=== PATIENT | female | born 1995 | race Caucasian/White ===

== ENCOUNTER → 2017-02-27 | Outpatient (CLI) | payer OTHER | LOC: MOB LAB 15:33 | PROVIDERS: ATTEND Obstetrics & Gynecology | DX: Z36 Encounter for antenatal screening of mother (principal); Z3A.36 36 weeks gestation of pregnancy | CPT/HCPCS: 87150 ==

== ENCOUNTER 2017-03-19 15:07 | Inpatient (IN) ==
[2017-03-19] MEDS ORDERED: Naloxone Inj 0.01 MG in Normal Saline Flush 1 ML IVP PRN (17:17)
[2017-03-19] MEDS ORDERED: Lidocaine 1% 10 MG/ML - 20 ML VIAL SUBCUT PRN (17:17)
[2017-03-19] MEDS ORDERED: Famotidine Inj 20 MG in Normal Saline Flush 10 ML IVP PRN ×4 (17:17)
[2017-03-19] MEDS ORDERED: NALOXONE 0.4 MG/1 ML VIAL IVP PRN (17:17)
[2017-03-19] MEDS ORDERED: Carboprost Inj 250 MCG/ML AMP IM PRN (17:17)
[2017-03-19] MEDS ORDERED: diphenhydrAMINE 50 MG/1 ML VIAL IVP PRN (17:17)
[2017-03-19] MEDS ORDERED: OXYTOCIN 10 UNIT/1 ML IM PRN (17:17)
[2017-03-19] MEDS ORDERED: Metoclopramide Inj 10 MG/2 ML VIAL IV PRN (17:17)
[2017-03-19] MEDS ORDERED: Nalbuphine Inj 20 MG/ML Ampule IVP PRN (17:17)
[2017-03-19] MEDS ORDERED: CefOXitin Inj 2 GM in Sodium Chloride 0.9% 100 ML IV PRN (17:17)
[2017-03-19] MEDS ORDERED: BUTORPHANOL TARTRATE 2 MG/1 ML VIAL IVP PRN (17:17)
[2017-03-19] MEDS ORDERED: fentaNYL Inj 100 MCG/2 ML VIAL IV PRN (17:17)
[2017-03-19] MEDS ORDERED: CALCIUM CARBONATE 500 MG (TUMS) CHEWABLE TABLET PO PRN (17:17)
[2017-03-19] MEDS ORDERED: NORMAL SALINE 10 ML SYRINGE FLUSH IVP PRN (17:17)
[2017-03-19] MEDS ORDERED: MISOPROSTOL 200 MCG TABLET RECTAL PRN (17:17)
[2017-03-19] MEDS ORDERED: CITRIC ACID/SODIUM CITRATE 30 ML CUP PO PRN (17:17)
[2017-03-19] MEDS ORDERED: ONDANSETRON 4 MG/2 ML VIAL IVP PRN (17:17)
[2017-03-19] MEDS ORDERED: TERBUTALINE SULFATE 1 MG/1 ML SDV SUBCUT PRN (17:17)
[2017-03-19] MEDS ORDERED: LIDOCAINE W/ SODIUM BICARB 0.5 ML SYR SUBD PRN (17:17)
[2017-03-19] MEDS ORDERED: METHYLERGONOVINE MALEATE 0.2 MG/1 ML VIAL IM PRN (17:17)
[2017-03-19] MEDS ORDERED: ZOLPIDEM 10 MG TABLET PO PRN (17:21)
[2017-03-19] MEDS ORDERED: Oxytocin 20 Units + LR 1,000 ML IV SCH (17:30)
[2017-03-19 17:40] LABS: BASOPHILS # (AUTO) 0.05 10*3/UL; BASOPHILS % (AUTO) 0.5 % (0-1); EOSINOPHILS # (AUTO) 0.09 10*3/UL; EOSINOPHILS % (AUTO) 0.9 % (0-8); Hematocrit [HCT] 37.8 % (37.0-47.0); Hemoglobin [HGB] 13.1 g/dL (12.0-16.0); MEAN CORPUSCULAR HGB CONC 34.7 g/dL (33-37); MEAN CORPUSCULAR VOLUME 89.4 FL (81-99); MONOCYTES # (AUTO) 0.72 10*3/UL (0.3-0.8); MONOCYTES % (AUTO) 7.2 % (5-15); NEUTROPHILS # (AUTO) 7.45 10*3/UL; NEUTROPHILS % (AUTO) 74.1 % (50-80); PLATELET MORPHOLOGY COMMENT NORMAL MORPHOLOGY (NORM); RBC MORPHOLOGY COMMENT NORMAL MORPHOLOGY (NORM); RED BLOOD COUNT 4.23 10^6/uL (4.20-5.40); WBC MORPHOLOGY COMMENT NORMAL MORPHOLOGY (NORM)
[2017-03-19] MEDS ORDERED: diphenhydrAMINE HCL 12.5 MG/5 ML UD CUP PO PRN (18:06)
[2017-03-19 18:13] LABS: HIV ANTIBODY NEGATIVE (N); HIV-1 P24 ANTIGEN NEGATIVE (N)
[2017-03-19] MEDS: Misoprostol Tab 100 MCG TAB VAGINAL SCH ×2 (18:30→21:12)
[2017-03-19] MEDS: Lactated Ringers-OB Dept 1,000 ML PRIMARY IV SCH (21:11)
[2017-03-19] MEDS ORDERED: HYDROXYZINE PAMOATE 25 MG CAPSULE PO ONE (22:16)
[2017-03-20] MEDS: Misoprostol Tab 100 MCG TAB VAGINAL SCH ×3 (00:20→09:11)
[2017-03-20] MEDS: Lactated Ringers-OB Dept 1,000 ML PRIMARY IV SCH ×7 (05:17→17:16)
[2017-03-20] MEDS ORDERED: Oxytocin 20 Units + LR 1,000 ML IV SCH ×2 (06:45→19:15)
--- NOTE | 2017-03-20 08:44 | OB.PROGRES ---
Interval History: G1 at 39 2/7 weeks EGA in for elective induction. Pt. is currently on pitocin after two doses of cyotec overnight. She is olive irregularly and not painfully at this point. Cervix has not changed since her examination in the office yesterday. FHRT is category 1. Continue pitocin. Objective - Labs CBC and BMP: 03/19/17 17:21 Labs - Last 24 Hours: Laboratory Results 03/19/17 03/19/17 Range/Units 17:21 18:01 WBC 10.05 (4.8-10.8) 10^3/uL RBC 4.23 (4.20-5.40) 10^6/uL Hgb 13.1 (12.0-16.0) g/dL Hct 37.8 (37.0-47.0) % MCV 89.4 (81-99) FL MCH 31.0 (27-31) PG MCHC 34.7 (33-37) g/dL RDW Std Deviation 41.7 (39-50) fL RDW Coeff of Pamela 13.1 (11.5-14.5) % Plt Count 266 (140-350) 10*3/uL MPV 10.0 (7.4-12.2) FL Immature Gran % (Auto) 1.4 (0-5) % Neut % (Auto) 74.1 (50-80) % Lymph % (Auto) 15.9 (10-50) % [place] % (Auto) 7.2 (5-15) % Eos % (Auto) 0.9 (0-8) % Baso % (Auto) 0.5 (0-1) % Immature Gran # (Auto) 0.14 10*3/UL Neut # (Auto) 7.45 10*3/UL Lymph # (Auto) 1.60 10*3/uL [place] # (Auto) 0.72 (0.3-0.8) 10*3/UL Eos # (Auto) 0.09 10*3/UL Baso # (Auto) 0.05 10*3/UL WBC Morphology Comment Normal morphology (NORM) Plt Morphology Comment Normal morphology (NORM) RBC Morph Comment Normal morphology (NORM) HIV 1&2 Antibody Rapid Negative (N) HIV P24 Antigen Negative (N) Blood Type O POSITIVE Antibody Screen Negative - Vital Signs Last Taken Vital Signs: Vital Signs - Last Taken Temperature 98.2 F 03/20/17 06:30 Pulse Rate 73 03/20/17 07:00 Respiratory Rate 20 03/20/17 08:00 Blood Pressure 110/72 03/20/17 07:30 Pulse Ox 97 03/20/17 06:30
[2017-03-20] MEDS ORDERED: Fent/Bupiv 2mcg/0.0625% Epid 250 ML ONE (13:47)
[2017-03-20] MEDS ORDERED: fentaNYL 2 MCG/BUPIVACAINE 0.0625%/NS 0.9% 250 ML BAG EPIDURAL SCH (14:00)
--- NOTE | 2017-03-20 14:03 | CRNA.PROCE ---
Central Neuraxis Block Placemt - - Safety Measures: Time Out Taken, Site Verified - - Type of Block: Epidural Reason for Block: Analgesia Moniters Used During Block: SPO2, NIBP Skin Prep Used: ChloroPrep Skin Infiltration - Enter Amount Used in Comment Field: 1% Xylocaine (mL): Yes ( skin wheal) Spinal Needle Used: 18 Hustead 80 mm Local Anesthetic - Enter Amount Used in Comment Field: 1.5 % Xylocaine with Epinephrine 1:200,000 (mL): Yes (5ml) Number of Centimeters Catheter Threaded: 4 Bioclusive Dressing Applied: Yes - - Additional Details: Chart reviewed and pt interviewed, R/B discussed and wishes to proceed with labor epidural. Dayne MARTIN
[2017-03-20] MEDS: ePHEDrine Inj 5 MG in Normal Saline Flush 1 ML IVP PRN ×2 (14:13→14:26)
[2017-03-20] MEDS: Phenylephrine Inj 50 MCG in Normal Saline Flush 0.5 ML IVP PRN ×3 (14:36→17:52)
--- NOTE | 2017-03-20 18:06 | EKG ---
[address] [address] Measurements Intervals [place] Rate: 138 P: 83 WI: 123 QRS: 92 QRSD: 80 T: 22 QT: 294 QTc: 375 Interpretive Statements SINUS TACHYCARDIA BORDERLINE RIGHT AXIS DEVIATION [QRS AXIS > 90] NONSPECIFIC ST & T-WAVE ABNORMALITY ABNORMAL RHYTHM ECG INTERPRETATION BASED ON A DEFAULT AGE OF 40 YEARS No previous ECG available for comparison Electronically Signed On 03-21-17 10:56:40 MDT by Dwain Parrish MD [email or web address]
--- NOTE | 2017-03-20 18:17 | OB.DEL.SUM ---
Delivery Note Delivery Summary: The patient progressed rapidly after placement of epidural. She went from 6 cm to complete quickly and pushed for less than an hour to of a viable male infant, weight 7 pounds, Apgars 7/9, from OA position over a fairly large second degree vaginal/perineal laceration. The placenta delivered promptly, spontaneously, intact, with a 3 vessel cord. Repair was made with 3-0 Vicryl Rapide in the usual manner. Uterine atony responded well to bimanual massage and a single dose of IM Methergine. EBL 500 ml. There were no complication. Mother and baby tolerated delivery well.
[2017-03-20] MEDS ORDERED: GLYCERIN/WITCH HAZEL 1 BOX TOPICAL PRN (19:15)
[2017-03-20] MEDS ORDERED: CALCIUM CARBONATE 500 MG (TUMS) CHEWABLE TABLET PO PRN (19:15)
[2017-03-20] MEDS ORDERED: ACETAMINOPHEN 325 MG TABLET PO PRN (19:15)
[2017-03-20] MEDS ORDERED: Carboprost Inj 250 MCG/ML AMP IM PRN (19:15)
[2017-03-20] MEDS ORDERED: Hetastarch 6% + NS 500 ML IV ONE (19:15)
[2017-03-20] MEDS ORDERED: METHYLERGONOVINE MALEATE 0.2 MG/1 ML VIAL IM PRN (19:15)
[2017-03-20] MEDS ORDERED: diphenhydrAMINE 50 MG/1 ML VIAL IVP PRN (19:15)
[2017-03-20] MEDS ORDERED: Lactated Ringers 500 ML PRIMARY IV ONE (19:15)
[2017-03-20] MEDS ORDERED: ONDANSETRON 4 MG/2 ML VIAL IVP PRN (19:15)
[2017-03-20] MEDS ORDERED: LANOLIN HPA 40 GM TUBE TOPICAL PRN (19:15)
[2017-03-20] MEDS ORDERED: Methylergonovine Tab 0.2 MG TAB PO PRN (19:15)
[2017-03-20] MEDS ORDERED: diphenhydrAMINE 25 MG CAPSULE PO PRN (19:15)
[2017-03-20] MEDS ORDERED: MISOPROSTOL 200 MCG TABLET RECTAL ONE (19:15)
[2017-03-20] MEDS ORDERED: HYDROcodone-APAP 5 MG -325 MG TABLET PO PRN (19:15)
[2017-03-20] MEDS ORDERED: DIPH,PERTUSS,TET(ADACEL) VAC/PF 0.5 ML (Tdap) IM ONE (19:15)
[2017-03-20] MEDS ORDERED: Ondansetron ODT Tab 4 MG TAB PO PRN (19:15)
[2017-03-20] MEDS ORDERED: OXYTOCIN 10 UNIT/1 ML IM ONE (19:15)
[2017-03-20] MEDS ORDERED: BENZOCAINE/MENTHOL SPRAY 56 GM BOTTLE TOPICAL PRN (19:15)
[2017-03-20] MEDS ORDERED: Nalbuphine Inj 20 MG/ML Ampule IVP PRN (19:15)
[2017-03-20] MEDS ORDERED: NORMAL SALINE 10 ML SYRINGE FLUSH IVP PRN (19:15)
[2017-03-21] MEDS: IBUPROFEN 800 MG TABLET PO PRN ×3 (00:10→18:52)
[2017-03-21] MEDS: DOCUSATE 100 MG CAPSULE PO SCH ×3 (00:23→22:10)
[2017-03-21 05:22] LABS: Hematocrit [HCT] 23.5 % (37.0-47.0); Hemoglobin [HGB] 7.8 g/dL (12.0-16.0); MEAN CORPUSCULAR HEMOGLOBIN 30.4 PG (27-31); MEAN CORPUSCULAR HGB CONC 33.2 g/dL (33-37); MEAN CORPUSCULAR VOLUME 91.4 FL (81-99); MEAN PLATELET VOLUME 9.9 FL (7.4-12.2); RED BLOOD COUNT 2.57 10^6/uL (4.20-5.40)
--- NOTE | 2017-03-21 07:53 | OB.PROGRES ---
Subjective Post Day: 1 Pain Management: PO Drew Catheter: No Flatus: Yes Diet: Regular [place] Feeding Method: Exculsively Ambulating: Yes Concerns / Additional Information: Heather is doing well this morning. Her hemoglobin is 7.8, but she denies dizziness or light-headedness. Lochia is normal. Voiding well. Assesstment / Plan Assessment / Plan: PPD 1, doing well apart from low H/H. CCM.
[2017-03-21] MEDS: Prenatal Multivitamin Tab 1 TAB TAB PO SCH (08:29)
[2017-03-21] MEDS: FERROUS SULFATE 325 MG TABLET PO SCH ×2 (15:23→22:11)
--- NOTE | 2017-03-21 15:50 | CRNA.PROGR ---
Anesthesia Note Anesthesia Progress Note: Post OP Anesthesia Note Pt is sitting up in bed, has been up to the shower and is dressed. She states she is tolerating regular diet and pain is well under control. She also states that she had great pain control throughout labor until delivery. Current VS stable. Vital Signs (Last 8 hours) Temp Pulse Resp BP Pulse Ox 03/21/17 13:05 98.1 F 113 H 18 114/63 97 03/21/17 12:10 78 103/50 03/21/17 09:51 98.1 F 99 20 105/50 98
[2017-03-21 16:36] LABS: Hematocrit [HCT] 23.1 % (37.0-47.0); Hemoglobin [HGB] 7.9 g/dL (12.0-16.0)
[2017-03-21] MEDS ORDERED: Sodium Chloride 0.9% 500 ML PRIMARY IV ONE (17:16)
[2017-03-22 05:23] LABS: Hematocrit [HCT] 29.8 % (37.0-47.0); Hemoglobin [HGB] 10.1 g/dL (12.0-16.0)
[2017-03-22] MEDS: IBUPROFEN 800 MG TABLET PO PRN (05:23)
--- NOTE | 2017-03-22 08:29 | DCSUMMARY ---
Hospitalization Summary Admit Date: 03/19/17 Discharge Date: 03/22/17 Primary Diagnosis:: Term , Delivered Secondary Diagnosis:: Elective Induction of Labor, Hemorrhage Delivery Type: Vaginal Hospital Course: Normal Labor and delivery after labor induction with cytotec and pitocin. PP course marked by anemia from PPH which was treated with 2 U PRBC. Pt. discharged to home on PPD 2 in good condition. / Postop Complications: None [place] Complications: None Exam - Vitals Vital Signs: Vital Signs Temperature 98.2 F Temperature Source Oral Pulse Rate [Pulse Oximeter] 101 Pulse Rate 75 Respiratory Rate 16 Blood Pressure [Left Arm] 116/56 Blood Pressure [Right Arm] 100/59 Blood Pressure 108/71 Pulse Ox 96 Oxygen Flow Rate 97 Oxygen Delivery Method Room Air Height 5 ft 6 in Weight 205 lb
--- NOTE | 2017-03-22 08:31 | OB.PROGRES ---
Subjective Post Day: 2 Pain Management: PO Drew Catheter: No Flatus: Yes Diet: Regular [place] Feeding Method: Exculsively Ambulating: Yes Concerns / Additional Information: Heather was symptomatic from her anemia yesterday afternoon, and was treated with 2 U PRBC. Her H/H has risen appropriately after transfusion, and she feels much better this AM. She is ready for discharge to home. Assesstment / Plan Assessment / Plan: PPD 2. Doing much better after transfusion. Discharge to home.
[2017-03-22] MEDS: Prenatal Multivitamin Tab 1 TAB TAB PO SCH (09:03)
[2017-03-22] MEDS: DOCUSATE 100 MG CAPSULE PO SCH (09:03)
[2017-03-22 09:06] VITALS: RESP 18; TEMP 98
[2017-03-22] MEDS: FERROUS SULFATE 325 MG TABLET PO SCH ×2 (09:53→16:09)
== END 2017-03-22 12:44 | disposition home or self-care (01) | DRG 775 ==
LOC: OBIP 17:17 → UNDOADMIN 17:17 → UNDODISIN 03-22 12:44
PROVIDERS: ADMIT Obstetrics & Gynecology; ATTEND Obstetrics & Gynecology